=== PATIENT | female | born 1995 | race Caucasian/White ===

== ENCOUNTER 2023-10-26 06:56 | Outpatient (CLI) | payer OTHER, SELFPAY ==
--- NOTE | 2023-10-26 07:15 | US_ITS ---
Patient: MINERVA CHAVIRA Facility:?[facility] RIS Patient ID:?[id number] Site Patient ID:?[id number]. Site :?[id number] Study:?US-OB Pelvis DATING AND VIABILITY-10/26/2023 7:40:13 AM Ordering Physician:?SONALI TIJERINA Final Report: INDICATION: First trimester scan, establish dates. COMPARISON: None. TECHNIQUE: Real-time aviles-scale imaging of the pelvis was performed. FINDINGS: Sonographic imaging demonstrates a single living intrauterine gestation. The embryo demonstrates a regular cardiac rate measuring 157 beats per minute. The embryo`s crown-rump length measurement of 2.8 cm corresponds to a gestational age of 9 weeks 4 days with a sonographic due date of 05/26/2024. There is a normal-appearing yolk sac. There are no gross abnormalities noted within the embryo at this early state of development. The gestational sac has a normal appearance. There is no evidence of a perigestational hemorrhage. The amount of fluid within the sac appears appropriate for gestational age. The cervix is closed. The myometrium appears normal. The ovaries are of normal size. Corpus luteal cyst left ovary. There are no suspicious fluid collections noted in the cul-de-sac. IMPRESSION: Normal first trimester OB ultrasound exam. Gestational age calculated at 9 weeks 4 days with a sonographic due date of 05/26/2024. Dictated by Dipak Bashir MD @ 10/26/2023 12:01:06 PM Signed by:?Dipak Bashir MD @10/26/2023 12:01:06 PM (Electronic Signature)
== END 2023-10-26 06:57 | disposition home or self-care (01) ==
LOC: US 06:56
PROVIDERS: PCP Physician Assistant; Visit Provider Registered Nurse
DX: Z34.91 Encounter for supervision of normal pregnancy, unspecified, first trimester (principal); Z3A.09 9 weeks gestation of pregnancy
CPT/HCPCS: 76801; 86703; 86706; 86803; 86850; 86900; 86901; 87086; 87340; 87491; 87591

== ENCOUNTER 2023-10-26 08:27 | Outpatient (CLI) | payer OTHER, SELFPAY ==
[2023-10-26 12:36] LABS: Chlamydia DNA Amplified* NOT DETECTED (No Detected); GC DNA Amplified* NOT DETECTED (No Detected)
== END 2023-10-26 08:28 | disposition home or self-care (01) ==
PROVIDERS: PCP Physician Assistant; Visit Provider Registered Nurse
DX: Z34.91 Encounter for supervision of normal pregnancy, unspecified, first trimester (principal)
CPT/HCPCS: 86592; 86703; 86704; 86706; 86762; 86787; 86803; 86850; 86900; 86901; 87086; 87340; 87491; 87591

== ENCOUNTER 2024-01-10 06:52 | Outpatient (CLI) | payer OTHER, SELFPAY ==
--- NOTE | 2024-01-10 07:15 | CRLHL7_ITS ---
For Patients: As a result of the 21st Century Cures Act, medical imaging exams and procedure reports are released immediately into your electronic medical record. You may view this report before your referring provider. If you have questions, please contact your health care provider. OB ULTRASOUND INDICATION: Basic anatomy survey. FINDINGS: Gestational age 20 weeks 1 day. TECHNIQUE: Transabdominal pelvic ultrasound imaging. position: Multiple. Cervix: Visualized. Length of closed cervix: 4 cm. Placenta position: Anterior. Placenta tip to internal os: 3 cm. Umbilical cord: 3-vessel cord. Placental insertion: Central. Amniotic fluid: 4 cm SDP. ANATOMY: (Visualized) Cerebellum 2.1 cm, 21 weeks, 1 day. Cisterna magna 4.6 mm. Nuchal fold 3 mm. Lateral ventricle 6.7 mm. CSP. Midline falx. Choroid plexus. Spine. Stomach. Abdominal cord insertion. Urinary bladder. Kidneys. Diaphragm. Nose/lips. Orbital view. Profile. Upper extremities. Lower extremities. Hands. Feet. 4 chamber heart. LVOT. RVOT. 3VV. 3VTV. BPD 4.6 cm. 19 weeks, 6 days. 38 percent. HC 17.9 cm. 20 weeks, 2 days. 48 percent. AC 16.6 cm. 21 weeks, 4 days. 87 percent. FL 3.4 cm. 20 weeks, 6 days. 67 percent. FL/AC 20.75 percent. HC/AC ratio: 1.07. heart rate 144 bpm. age by this US 20 weeks, 5 days. DELIA by this 05/24/2024. Estimated weight 400 grams. 0 pounds, 14 ounces. Percentile by DELIA 92nd percentile. IMPRESSION: 1. Estimated weight is at the 92nd percentile. Abdominal circumference 87th percentile. 2. Normal anatomic survey. DAVE REICH M.D. [email or web address] be/Dictated by: Dave Reich MD @ 01/10/2024 2:42:00 PM (Electronically Signed)
== END 2024-01-10 06:53 | disposition home or self-care (01) ==
LOC: US 06:53
PROVIDERS: PCP Physician Assistant; Visit Provider Advanced Practice Midwife
DX: Z34.92 Encounter for supervision of normal pregnancy, unspecified, second trimester (principal); Z3A.20 20 weeks gestation of pregnancy
CPT/HCPCS: 76805

== ENCOUNTER 2024-03-05 08:30 | Outpatient (CLI) | payer OTHER, SELFPAY | END 2024-03-05 08:31 | disposition home or self-care (01) | LOC: NFLDREF 03-09 00:30 | PROVIDERS: PCP Physician Assistant; Referring Provider Physician Assistant; Visit Provider Advanced Practice Midwife | DX: Z34.90 Encounter for supervision of normal pregnancy, unspecified, unspecified trimester (principal) | CPT/HCPCS: 86592 ==

== ENCOUNTER 2024-05-02 15:34 | Outpatient (CLI) | payer OTHER, SELFPAY ==
[2024-05-04 15:23] LABS: Strep B DNA Probe Negative (Negative)
[2024-05-05 17:14] LABS: Strep B Susceptibility Needed? No
== END 2024-05-02 15:35 | disposition home or self-care (01) ==
LOC: NFLDREF 15:36
PROVIDERS: PCP Physician Assistant; Visit Provider Midwife
DX: Z34.01 Encounter for supervision of normal first pregnancy, first trimester (principal)
CPT/HCPCS: 87081; 87653

== ENCOUNTER 2024-05-14 23:16 | Inpatient (IN) | payer OTHER, SELFPAY ==
[2024-05-14 23:06] VITALS: BMI 26.9
[2024-05-14 23:35] LABS: Amnisure Rom* POSITIVE
[2024-05-14 23:37] VITALS: BP 136/67; PULSE 79; PULSE 83; RESP 16; TEMP 36.8; O2SAT 95
--- NOTE | 2024-05-14 23:47 | P.LDBA_ITS ---
Subjective History of Present Illness Date Seen: 05/14/24 Narrative: Patient is being admitted to Labor and Delivery for SROM this evening at 2200 confirmed by [facility]. She is a 28 year old at 38.0 weeks gestation. Her full history and physical was dictated by Bolivar Uriostegui CNM on 05/08/24. Please see this for details. Specific Issues/Plans G 1 P 0 : Juliano H&P completed 05/08/2024 by Vance GILES 1. Father of baby's cousin from SMA. Patient declines carrier testing. She believes her [id number]-[id number] tested negative. 2. Patient's mother has hx of preeclampsia Recommended baby ASA 3. Dominique's mother has Factor V Leiden. Dominique states she was tested as a teenager and is reportedly negative. 4. Thrombocytopenia of 144 at 28 weeks, consider repeat CBC at 34 weeks 104 at 34 weeks Full CBC on admit, may not be a candidate for epidural based on findings. Covid: Completed and up-to-date with boosters according to patient TDAP: 03/20/2024 RSV: 04/04/2024 FLU:04/17/24 OB - Problem Based A/P Additional Plan (1) Rupture of membranes with clear amniotic fluid: Status: Acute (2) 38 weeks gestation of : Status: Acute Plan Assessment:?? at 38.0 weeks gestation?? GBS negative? SROM clear fluid Labor type: Spontaneous, Early labor? Category 2 FHR pattern.? complicated by: 1. Father of baby's cousin from SMA. Patient declines carrier testing. She believes her [id number] tested negative. 2. Patient's mother has hx of preeclampsia Recommended baby ASA 3. Dominique's mother has Factor V Leiden. Dominique states she was tested as a teenager and is reportedly negative. 4. Thrombocytopenia of 144 at 28 weeks, consider repeat CBC at 34 weeks 104 at 34 weeks Full CBC on admit, may not be a candidate for epidural based on findings. Plan:?? * ?Admit to L & D? * IV access: SL as she is planning epidural * Monitoring per policy: intermittent once reactive NST? * Candidate for analgesia of choice.? Planning epidural for pain management if platelets are not too low * CBC now * Expectant management at this time * Monitor blood pressures. Consider labs if continue to be elevated.? * Patient encouraged to reposition and ambulate to promote physiologic labor and . * Anticipate ? Delivery/Labor/Induction Plan Plan: expectant management OB Exam Physical Exam Vital signs: Pulse BP Pulse Ox 83 136/67 95 05/14/24 23:37 05/14/24 23:37 05/14/24 23:37 Narrative: Vitals Reviewed Constitutional:? Alert and oriented x3 HEENT:? Normocephalic, atraumatic Neck:? Supple Lungs:? Clear to auscultation bilaterally Heart:? Regular rate and rhythm, no murmur, rub or gallop Abdomen:? Soft, nontender, and gravid. Vertex by Keith's, confirmed with cervical exam. Extremities:? No edema or erythema Cervix: 1 cm/50%/-3 station/vertex NST: 125 bpm/moderate variability/no accelerations/no decelerations/mild contractions Detailed Labor and Delivery Exam Patient Gravid: Yes Fetus (Single) Amniotic Membrane Status: SROM Amniotic Membrane Fluid Description: Clear
[2024-05-15] VITALS (70 sets, daily range): BP systolic 87–149; BP diastolic 50–74; PULSE 68–123; RESP 15–16; TEMP 36.4–37; O2SAT 98–100
[2024-05-15 00:41] LABS: Basophils Absolute Auto 0.05 K/uL (0.00-0.30); Basophils Percent Auto 0.6 % (0.0-3.0); Eosinophils Absolute Auto 0.16 K/uL (0.00-0.50); Eosinophils Percent Auto 1.8 % (0.0-7.0); Hematocrit 37.4 % (33.0-51.0); Hemoglobin* 12.4 gm/dL (12.0-16.0); Immature Granulocytes Abs Auto 0.05 K/uL (0.00-0.30); Immature Granulocytes Pct Auto 0.6 %; Lymphocytes Absolute Auto 1.87 K/uL (0.90-2.90); Lymphocytes Percent Auto 20.6 % (20-44); Mean Corpuscular HGB Conc 33 gm/dL (32-36); Mean Corpuscular Hemoglobin 28 pg (26-34); Mean Corpuscular Volume 85 fL (80-100); Monocytes Percent Auto 9.4 % (0.0-11.0); Neutrophils Absolute Auto 6.08 K/uL (1.7-7.0); Platelet Count* 108 K/uL (140-440); RDW Coefficient of Variation % 12.4 % (11.5-15.5); White Blood Count* 9.06 K/uL (4.50-11.00)
[2024-05-15 00:42] LABS: Slide Review Reflex No
--- NOTE | 2024-05-15 08:15 | P.OBPN_ITS ---
Subjective Time Seen by Provider: 08:00 Date Seen: 05/15/24 Narrative: Dominique is feeling cramping contractions in her back that are mild and reports them about every 3 minutes. We discussed continuing with expectant management vs beginning Pitocin augmentation. She desires expectant management at this time as she has made some cervical change. Encouraged her to continue with labor warm up circuit and to initiate pumping to help encourage labor. Will plan to reevaluate for continued expectant management vs Pitocin augmentation around 1200. Objective Vital Signs: Last Vital Signs Temp 97.7 F 05/15/24 07:22 Pulse 75 05/15/24 07:05 Resp 16 05/15/24 07:22 BP 111/69 05/15/24 07:05 Pulse Ox 100 05/15/24 07:05 Pelvic Exam Dilation (cm): 2 Effacement (%): 80 Station: -2 Contractions Monitor mode: None Contraction Frequency: Q3 per pt report Contraction pattern: Irregular Contraction intensity: Mild Assessment Assessment: early labor Amniotic Membrane Status: SROM Status: Category l Plan Plan: Assessment:?? at 38.1 weeks gestation?? GBS negative? SROM clear fluid Labor type: PROM complicated by: thrombocytopenia, family history of preeclampsia and Factor V. Plan:?? * Has adequate IV access. * Monitoring per policy: intermittent unless patient condition changes per policy? * Candidate for analgesia of choice.? Planning epidural for pain management. * Reviewed risks and benefits of Pitocin vs continued expectant management. She would like to proceed with expectant management at this time. Will plan to reevaluate around 1200. * Patient encouraged to reposition and ambulate to promote physiologic labor and . * Anticipate ?
--- NOTE | 2024-05-15 12:59 | P.OBPN_ITS ---
Subjective Time Seen by Provider: 12:00 Date Seen: 05/15/24 Narrative: Dominique doesn't feel that her contractions have increased much in intensity stating that some are a little more painful but most just feel like cramping. We discussed risks and benefits of continuing with expectant management vs Pitocin augmentation. She is agreeable to Pitocin titration at this time. Questions answered. Objective Vital Signs: Last Vital Signs Temp 98.1 F 05/15/24 12:38 Pulse 72 05/15/24 12:38 Resp 16 05/15/24 12:38 BP 102/56 L 05/15/24 12:38 Pulse Ox 99 05/15/24 10:24 Pelvic Exam Dilation (cm): 2 Effacement (%): 80 Station: -2 Contractions Monitor mode: External Contraction Frequency: 3-4 Contraction pattern: Irregular Contraction intensity: Mild Assessment Assessment: early labor Station: -2 Amniotic Membrane Status: SROM Heart Rate Baseline: 135 Residential Variability: Moderate (6-25) Monitor Accelerations: Present Monitor Decelerations: None Plan Plan: Assessment:?? at 38.1 weeks gestation?? GBS negative? SROM clear fluid Labor type: PROM complicated by: thrombocytopenia, family history of preeclampsia and Factor V. Plan:?? * Has adequate IV access. * Monitoring per policy: continuous once Pitocin is started ? * Candidate for analgesia of choice.? Planning epidural for pain management. Candidate when she desires. Platelets 108 at last check. * Reviewed risks and benefits of Pitocin vs continued expectant management. She would like to proceed with Pitocin titration. * Patient encouraged to reposition and ambulate to promote physiologic labor and . * Anticipate ?
[2024-05-15] MEDS: OXYTOCIN 30 unit/500 ML in NS 30 UNIT/500 ML BAG IVPB (14:00)
[2024-05-15] MEDS: LACTATED RINGERS 1000 ML 1,000 ML 125 ML IV (14:00)
[2024-05-15] MEDS: LIDOCAINE 2% (PF) 5 ML VIAL EPIDURAL (15:35)
[2024-05-15] MEDS: ROPIVACAINE 0.2% 100 ml 100 ML 12 MG EPIDURAL (15:55)
--- NOTE | 2024-05-15 16:06 | P.ANBPRC_ITS ---
[facility] Medical History (Updated 05/15/24 @ 00:03 by Endy Santos CNM) GERD (gastroesophageal reflux disease) ?K21.9 - Gastro-esophageal reflux disease without esophagitis (ICD-10) Acne ?L70.9 - Acne, unspecified (ICD-10) Surgical History (Updated 05/08/24 @ 09:01 by Jada Uriostegui CNM) History of lipoma ?Z86.018 - Personal history of other benign neoplasm (ICD-10) Family History Mother High cholesterol Colon polyp Factor V Leiden Preeclampsia Father High blood pressure High cholesterol Colon polyp Brother Thyroid disease Maternal Grandmother Colon cancer, Onset Age: 40 Maternal Grandfather High cholesterol High blood pressure Heart disease Paternal Grandfather Diabetes Heart disease Atrial fibrillation High blood pressure Family/Other SMA (spinal muscular atrophy) Social History What is your current living situation?: I presently have a place to live Problems where you live: no known problems In the past 12 months, utilities in danger of being shut off: no In past 12 months, lack of transportation kept you from medical appts, meetings, work, or getting things needed for daily living: no In the past 12 mos, have been you worried that your food would run out before you had money to buy more?: never true In the past 12 mos, the food you bought just didn't last and you didn't have money to buy more?: never true Smoking Status: Never smoker How often does anyone, including family, friends and others, physically hurt you : never How often does anyone, including family, friends and others, insult or talk down to you: never How often does anyone, including family, friends and others, threaten you with harm: never How often does anyone, including family, friends and others, scream or curse at you: never Little interest or pleasure in doing things: not at all Feeling down, depressed, or hopeless: not at all Meds Home Medications and Allergies Home Medications ?Medication ?Instructions ?Recorded ?Confirmed ?Type calcium carbonate (Calcium 600) 600 mg PO QDAY 10/26/23 05/15/24 History docosahexaenoic acid 200 mg 200 mg PO DAILY 10/26/23 05/15/24 History capsule ( DHA) aspirin 81 mg tablet,delayed 81 mg PO QDAY 11/23/23 05/15/24 History release Allergies Allergy/AdvReac Type Severity Reaction Status Date / Time No Known Drug Allergies Allergy Verified 05/08/24 08:14 Results Labs Labs: Laboratory Results - last 24 hr 05/14/24 05/15/24 23:13 00:25 WBC 9.06 RBC 4.40 Hgb 12.4 Hct 37.4 MCV 85 MCH 28 MCHC 33 RDW Coeff of Jillian 12.4 Plt Count 108 L Neut % (Auto) 67.0 Lymph % (Auto) 20.6 [place] % (Auto) 9.4 Eos % (Auto) 1.8 Baso % (Auto) 0.6 Neut # (Auto) 6.08 Lymph # (Auto) 1.87 [place] # (Auto) 0.90 Eos # (Auto) 0.16 Baso # (Auto) 0.05 Abs Immat Gran (auto) 0.05 Imm/Tot Granulo (auto) 0.6 Membrane Rupture POSITIVE Blood Type A Positive Antibody Screen NEGATIVE Vital Signs Vital Signs: Last Vital Signs Temp 97.9 F 05/15/24 14:38 Pulse 94 05/15/24 15:59 Resp 16 05/15/24 14:38 BP 104/66 05/15/24 15:59 Pulse Ox 98 05/15/24 15:57 Weight: 71.033 kg Height: 162.56 cm Anesthesia Procedures Epidural Insertion Patient Location: OB Start Time: 15:15 Stop Time: 16:15 Start Date: 05/15/24 Stop Date: 05/15/24 Reason for Block: procedure for pain Patient Position: sitting Performed By: Neal Gómez Preanesthetic Checklist: IV checked, risks and benefits discussed, monitors and equipment checked, pre-op evaluation, timeout performed and anesthesia consent Prep: chlorhexidine gluconate Monitoring: blood pressure monitoring, continuous pulse oximetry and heart rate Approach: midline Vertebral Space: lumbar (1-5) Epidural Technique: FRANNY saline Needle Type: Tuohy needle Injection Technique: continuous catheter Needle gauge: 17 Needle Length (cm): 10 cm Needle Insertion Depth (cm): 6 Catheter Gauge: 19 Catheter Type: multi-orifice Catheter at skin depth (cm): 15 Test Dose Result: negative and lidocaine 1.5% with epinephrine 1 to 200,000
--- NOTE | 2024-05-15 19:47 | P.OBPN_ITS ---
Subjective Date Seen: 05/15/24 Narrative: Dominique built up quickly to painful contractions after the Pitocin was started and soon after requested an epidural. She now has an effective epidural in place and has been able to rest between position changes. She is continuing to leak clear fluid. A SVE showed her to be 8cm/80%/0 with more cervix anteriorly vs posteriorly. Will plan thrown position at this time and continue to labor. They deny questions or concerns at this time. Objective Vital Signs: Last Vital Signs Temp 98.2 F 05/15/24 19:38 Pulse 100 05/15/24 19:46 Resp 15 05/15/24 18:32 BP 101/65 05/15/24 19:46 Pulse Ox 98 05/15/24 15:57 Pelvic Exam Dilation (cm): 8 Effacement (%): 80 Station: 0 Contractions Monitor mode: External Contraction Frequency: 1.5-3 min Contraction pattern: Regular Contraction intensity: Strong/Firm Pitocin Rate (mU/min): 6 Assessment Assessment: active labor Station: 0 Amniotic Membrane Status: SROM Status: Category l Heart Rate Baseline: 135 Ride Mechanic Variability: Moderate (6-25) Monitor Accelerations: Present Monitor Decelerations: None Plan Plan: Assessment:?? at 38.1 weeks gestation?? GBS negative? SROM clear fluid Labor type: active labor after PROM with Pitocin augmentation complicated by: thrombocytopenia, family history of preeclampsia and Factor V. Plan:?? * IV access in place. * Monitoring per policy: continuous monitoring since Pitocin initiation ? * Effective analgesia in place. * Pitocin augmentation titration. * Patient encouraged to reposition with RN assistance to promote physiologic labor and . * Anticipate ?
--- NOTE | 2024-05-15 23:41 | W.PM.OBVAGDE ---
OB Procedure Vag Delivery Mother Details Mother Details: The patient is a 28 year-old, 1, Para 1, admitted on 05/14/24 at Days gestation. : 1 Para: 1 Weeks Gestation: 38.1 Admission Date: 05/14/24 Additional Details Amniotic Membrane Status: SROM Amniotic Membrane Rupture Date: 05/14/24 Amniotic Membrane Rupture Time: 22:00 Amniotic Membrane Fluid Description: Clear Analgesia/Anesthesia Type: Epidural Waterbirth: No Pitcoin: Yes (augmentation and AMTSL) Intrapartal Events: Labor Augmentation and ROM >18 Hours Delivery augmentation: pitocin Labor Onset: 14:24 Complete: 21:15 Pushin:17 Heart: heart tones during second stage were category 2. Baseline 135, + accels, occasional variable and late decels at the end of 2nd stage with good return to baseline and moderate variability in between. Delivery Details Delivery Date: 05/15/24 Delivery Time: 23:18 Route of delivery: Gender: Male Infant Viability: Alive; Heart Rate Present Position at Delivery: OA Delivery Details: Patient was admitted for PROM and progressed with pitocin augmentation. SROM noted at 2200 on 05/14 at home with clear fluid. Patient was complete at 2115 and pushing at 2117. of a viable male at 2318 on her back in the bed after many position changes. Vertex delivered OA. No shoulder. Nuchal cord x1 that was loose and easily reduced on the perineum. Cord was wrapped around the left leg x2 as well. Body delivered easily and without incident. passed to mothers abdomen with a vigorous cry. Cord was clamped and cut at > 5 minutes. APGARS were 8 at one minute and 9 at five minutes respectively. Mouth was bulb suctioned. Intact placenta with a 3 vessel cord delivered spontaneously at 2326. Fundus firm. 1st identified and was well approximated. Hemostasis was easily attained with pressure for about 1 minute and after shared decision making the laceration was not repaired. QBL 50 cc. Mother and baby stable; mother plans to breastfeed. Infant weight pending.? 1 Minute Interval Total Score: 8 5 Minute Interval Total Score: 9 Additional Details Shoulder Dystocia: No Placenta Delivery Time: 23:26 Placental Delivery Description: Spontaneous Procedure Done: Global Blood Loss: 50 Laceration: Perineal - 1st Degree (not repaired ) Episiotomy Description: None Blood Loss Measurement Type: QBL Bakri Used: No Sponge/Need Count Correct: Yes Cord Vessel Description: 3 Vessels, Nuchal Cord, Loose, Reduced and Around Extremity Event Summary Status: Mother and were stable after delivery. Disposition: floor
[2024-05-16] VITALS (14 sets, daily range): BP systolic 97–115; BP diastolic 55–74; PULSE 75–102; RESP 16–18; TEMP 36.6–37.7; O2SAT 95–97
--- NOTE | 2024-05-16 08:22 | PM.OBPNVD1 ---
OB - PN:Subj Subjective Date Seen: 05/16/24 Narrative: Dominique is a 28 y.o. G 1 P 1 who was admitted to L & D for SROM. ?She had a NVD that was uncomplicated. The patient feels well. ?The pain is well controlled with current medications. ?She has no new complaints. ?She is breast feeding and reports things are going well. the patient has done well.? Vitals have been stable.? She has remained afebrile.? Has a good appetite, is tolerating a general diet. ?She is voiding without difficulty.? She is passing gas and has not had a bowel movement.? She is ambulating and denies any dizziness.? Has small amount of rubra lochia. Problems: none OB - PN: Obj Exam Physical Exam: Vital signs: Temp Pulse Resp BP Pulse Ox O2 Del Method 98.6 F 87 16 99/67 97 Room Air 05/16/24 07:38 05/16/24 07:38 05/16/24 07:38 05/16/24 07:38 05/16/24 07:38 05/16/24 07:38 Narrative: GENERAL APPEARANCE:? normal affect, alert, no distress MOOD:? appropriate CHEST:? clear to auscultation HEART:? regular rate and rhythm ABDOMEN:? soft, non-tender the uterine fundus is At Umbilicus, Midline and is appropriate for the stage of recovery. PERINEUM:? mild edema of the perineum, there is a Perineal Laceration,?1st degree, that is healing well. EXTREMITIES:? normal and no edema OB - PN: A/P Delivery Assessment and Plan (1) care and examination immediately after delivery: Status: Acute (2) Normal vaginal delivery: Status: Acute (3) Lactating mother: Status: Acute Plan day: 1 Plan: routine care Comments: plan: Routine , may see if needed Hgb 12.4. Anticipate discharge tomorrow
--- NOTE | 2024-05-16 14:11 | PM.ANPOST ---
Post Anesthesia Note Post Anesthesia Note Patient seen: Inpatient Respiratory Status: adequate Cardiovascular Status: adequate Mental Status: baseline Pain: adequate Temp: baseline Anesthetic awareness: no Complications: none Follow care: none
[2024-05-17 00:05] VITALS: BP 103/66; PULSE 73; RESP 16; TEMP 36.6; O2SAT 95
[2024-05-17 02:27] LABS: Rapid Plasma Reagin (RPR) Non Reactive (Non Reactive)
--- NOTE | 2024-05-17 07:33 | P.DS_ITS ---
DS: Providers Provider Date Seen: 05/17/24 Date of admission: 05/14/24 23:16 Primary care physician: Catherine Adkins PA-C Admitting Clinician: Endy Santos CNM Attending Physician on discharge: Vance HERNANDEZ CNM Date of Discharge: 05/17/24 DS: Diagnosis Discharge Diagnosis (1) Lactating mother: Status: Acute (2) care and examination immediately after delivery: Status: Acute (3) Normal vaginal delivery: Status: Acute Exam Narrative: Exam Narrative: GENERAL APPEARANCE:? normal affect, alert, no distress MOOD:? appropriate CHEST:? clear to auscultation HEART:? regular rate and rhythm ABDOMEN:? soft, non-tender the uterine fundus is At Umbilicus, Midline and is appropriate for the stage of recovery. PERINEUM:? mild edema of the perineum, there is a Perineal Laceration,?with no sign of infection, small hemorrhoid noted EXTREMITIES:? normal and mild edema Const: Vital Signs, click to edit/add: Vital Signs - 24 hr 05/16/24 07:38 05/16/24 16:30 05/16/24 19:50 Temperature 98.6 F 99.8 F H 97.9 F Pulse Rate [Pulse Oximeter] 87 82 75 Respiratory Rate 16 18 16 Blood Pressure [Le ft Arm] 99/67 110/67 110/74 Pulse Oximetry 97 96 97 Oxygen Delivery Me thod Room Air Room Air Room Air 05/17/24 00:05 Temperature 97.9 F Pulse Rate [Pulse Oximeter] 73 Respiratory Rate 16 Blood Pressure [Le ft Arm] 103/66 Pulse Oximetry 95 Oxygen Delivery Me thod Room Air OB - DS: Summary Hospital Course Hospital Course: Dominique is a 28 y.o. G 1 P 1001 who was admitted to [facility] for Rupture of membrane.? She had a NVD that was uncomplicated. The patient feels well.? The pain is well controlled with current medications.? She has no new complaints.? She is breast feeding and reports things are going well. the patient has done well.? Vitals have been stable.? She has remained afebrile.? Has a good appetite, is tolerating a general diet.? She is voiding without difficulty.? She is passing gas and has not had a bowel movement.? She is ambulating and denies any dizziness.? Has small amount of rubra lochia. She is planning condoms for prevention.? ?? Problems: none? Gestational thrombocytopenia with platelets stable at 108. ?? plan:? Discharge home with baby.? Follow up in 2 weeks and 6 weeks.? , may see if needed? Hgb 12.4. ? Call for signs/symptoms of preeclampsia? Peripartum Data Infant delivery method: Vaginal Laceration description: Perineal - 1st Degree (not repaired) Episiotomy description: None complications: none Infant Gender: Male Infant Discharge Plan: Home Status at Discharge Overall status at discharge: patient is progressing back to baseline Time Spent with Patient Time attestation: Total time spent providing and/or coordinating discharge services: Time spent: Less than 30 minutes Discharge Plan Discharge Disposition: Home, Self-Care Date of Admission: 05/14/24 23:16 Attending Provider on Discharge: Jada Uriostegui Primary Care Provider: Catherine Adkins Condition: Stable Anticipated Discharge Date/Time: 05/17/24 12:00 Discharge Medications: Continued DHA 200 mg capsule 200 mg PO DAILY Discontinued aspirin 81 mg tablet,delayed release (DR/EC) 81 mg PO QDAY calcium carbonate [Calcium 600] 600 mg calcium (1,500 mg) tablet 600 mg PO QDAY Discharge Orders: Discharge Order (Routine); Ordered 05/17/24 Ordered By: Jada Uriostegui Patient Education: OB [place] [facility], OB Vaginal/Breast Feeding Additional Instructions: Discharge instructions were reviewed with the patient including signs and symptoms of infection and home going medications Nothing vaginally for 6 weeks: no tampons or intercourse Do not drive while taking narcotic pain medication(s) Off Work or School for 6 weeks Symptoms to report to doctor: * Bleeding that saturates more than one pad per hour * Passing clots larger than the size of a golf ball * Pain not relieved by prescribed medication * Fever above 100.4 degrees Fahrenheit * A foul vaginal odor * Difficulty in emotions, mood, and functions * Thoughts of hurting yourself and/or * Painful, reddened area in your breast * Any drainage, redness, or tenderness in your IV/epidural site * Severe headache that doesn't improve after taking medications * Changes in vision, including temporary loss of vision, blurred vision, and/or light sensitivity * Upper abdominal pain (usually under ribs on the right side) * Decrease in urination or painful, frequent urinating * Chest pain * Shortness of breath * Tenderness or pain with redness and/swelling in the calf(s) of your leg 2-week visit: discuss infant feeding concerns, review control options and screen for anxiety/depression. 6-week visit for an annual exam. consultation services are available to all mothers and babies for the first year after delivery.? To make an appointment, please call [phone]. For pain control of perineum, breast and pelvic pain, take 600 mg Ibuprofen every 6 hours as needed by mouth or 1000 mg acetaminophen (Tylenol) every 6 hours by mouth as needed. You can alternate these so you are taking something every 3 hours as needed. A heating pad can also be used for your abdomen or breasts.?You may also take docusate sodium up to twice daily to soften your stools and help to prevent constipation. You may wean off of it when your stools return to normal. Activity Level: Activity as Tolerated and No strenuous activity Discharge Diet: Regular Follow Up Appointments: [facility] [Provider Group] Forms: MyHealth Info Instructions
[2024-05-17 08:27] VITALS: BP 101/68; PULSE 84; RESP 14; TEMP 36.6; O2SAT 96
[2024-05-17] MEDS: DOCUSATE SODIUM 100 MG CAPSULE PO (08:40)
== END 2024-05-17 11:07 | disposition home or self-care (01) | DRG 806 ==
LOC: OB OUT 23:16 → OB 23:16
PROVIDERS: Admitting Provider Advanced Practice Midwife; PCP Physician Assistant; Visit Provider Advanced Practice Midwife
DX: O42.02 Full-term premature rupture of membranes, onset of labor within 24 hours of rupture (principal); O99.12 Other diseases of the blood and blood-forming organs and certain disorders involving the immune mechanism complicating childbirth; Z37.0 Single live birth; D69.6 Thrombocytopenia, unspecified; O70.0 First degree perineal laceration during delivery; Z83.2 Family history of diseases of the blood and blood-forming organs and certain disorders involving the immune mechanism; Z3A.38 38 weeks gestation of pregnancy
CPT/HCPCS: 01967; 36415; 84112; 85025; 86592; 86850; 86900; 86901; G0463; A9270; J2371; J2795; J7120